=== PATIENT | female | born 1950 | race American Indian/Alaskan Native ===

== ENCOUNTER 2021-03-08 09:25 | Emergency (ER) | payer MEDICARE ==
[2021-03-08] MEDS ORDERED: HYDROcodone/ACETAMINOPHEN 10-325MG TAB PO ONE (10:23)
--- NOTE | 2021-03-08 10:25 | Emergency Department Report ---
<FLOR MCCALL A - Last Filed: 03/08/21 12:38> ED Fall HPI - General Chief Complaint: Extremity Injury, Upper Stated Complaint: LT ARM PAIN , FALL Time Seen by Provider: 03/08/21 10:23 Source: patient Mode of arrival: Wheelchair - History of Present Illness Initial Comments: 70 yo comes to ER via EMS sp GLF while at work today. She is co LUE pain- shoulder, elbow, and hand. Radial and ulnar pulses intact. Sensation intact. Able to move hand and wrist. Guarding her upper arm. Denies prodrome of chest pain, dizziness or other medical symptom. She states she tripped. Fall witnessed. No LOC. Nothing is currently hurting - just the left arm. No spine tenderness/Pt is neurologically intact. -: Sudden Fall From: standing When Fall Occurred: 1 hour [employer] Fall Witnessed: yes, by bystander Loss of Consciousness: none Prolonged Down Time?: no Symptoms Prior to Fall: none Location: other Location - Extremities: Left: Shoulder, Arm, Elbow, Forearm Severity: moderate Quality: dull Context: tripped/slipped Associated Symptoms: denies - Related Data Allergies Allergy/AdvReac Type Severity Reaction Status Date / Time clindamycin [From Cleocin] Allergy Rash Verified 03/08/21 10:00 sulfamethoxazole Allergy Rash Verified 03/08/21 10:00 [From Bactrim] trimethoprim [From Bactrim] Allergy Rash Verified 03/08/21 10:00 ED Review of Systems Comment: All other systems reviewed and negative ED Past Medical Hx - Past Medical History Previous Medical History?: Yes Hx Hypertension: Yes Hx Arthritis: Yes - Family History Family history: no significant - Social History Smoking Status: Never Smoker Substance Use Type: None ED Physical Exam - General Limitations: No Limitations General appearance: alert, in no apparent distress - Head Head exam: Present: atraumatic, normocephalic - Eye Eye exam: Present: normal appearance - ENT ENT exam: Present: mucous membranes moist - Neck Neck exam: Present: normal inspection - Respiratory Respiratory exam: Present: normal lung sounds bilaterally. Absent: respiratory distress - Cardiovascular Cardiovascular Exam: Present: regular rate, normal rhythm. Absent: systolic murmur, diastolic murmur, rubs, gallop - GI/Abdominal GI/Abdominal exam: Present: soft, normal bowel sounds - Extremities Exam Extremities exam: Present: normal inspection - Expanded Upper Extremity Exam Left Shoulder Exam: Present: tenderness Upper Arm exam: Present: normal inspection Elbow exam: Present: normal inspection Forearm Wrist exam: Present: normal inspection - Back Exam Back exam: Present: normal inspection - Neurological Exam Neurological exam: Present: alert, oriented X3 - Psychiatric Psychiatric exam: Present: normal affect, normal mood - Skin Skin exam: Present: warm, dry, intact, normal color. Absent: rash ED Course - Reevaluation(s) Reevaluation #1: 03/08/21 12:[address] Rosario Needs reduction- greater tuberocity should reapproximate Then sling and have her follow up with Dr Rosario Staffed with Dr Stephen moctezuma for procedure María RN aware ED Medical Decision Making - Radiology Data Radiology results: report reviewed, image reviewed shoulder dislocation - Medical Decision Making Vital Signs 03/08/21 10:01 Temperature 97.5 F L Pulse Rate 72 Respiratory 16 Rate Blood Pressure 159/76 [Left] O2 Sat by Pulse 98 Oximetry triage- sling ordered; xray ordered medicated with norco neurovascular intact xray noted- will need reduction 1150 Dr Rosario ortho paged for recs- given dislocation and fracture pt had been medicated with morphine - she has INT placed by EMS remains neurovasc intact with good ulnar and radial pulses - Differential Diagnosis ro fx/dislocation/contusion ED Disposition Clinical Impression: Fall from ground level, Shoulder fracture, left, Dislocation, shoulder, anterior Disposition: 01 HOME / SELF CARE / HOMELESS Is pt being admited?: No Does the pt Need Aspirin: No Condition: Stable Instructions: Shoulder Dislocation, Pddw-le-Eljo, Moderate Conscious Sedation, Adult Referrals: PRIMARY CARE, [Primary Care Provider] - 3-5 Days GUMARO ROSARIO MD [Staff Physician] - 3-5 Days Time of Disposition: 11:47 <JOANNE WEBER - Last Filed: 03/08/21 15:42> ED Review of Systems ROS: Stated complaint: LT ARM PAIN , FALL Other details as noted in HPI ED Course Vital Signs 03/08/21 03/08/21 03/08/21 10:01 13:55 13:59 Temperature 97.5 F L Temperature [ 98.0 F Pre-Procedure] Pulse Rate 72 Pulse Rate [ 73 Intra-Procedure ] Pulse Rate [ 70 Post-Procedure] Pulse Rate [Pre 69 -Procedure] Respiratory 16 Rate Respiratory 24 Rate [Intra- Procedure] Respiratory 28 H Rate [Post- Procedure] Respiratory 28 H Rate [Pre- Procedure] Blood Pressure 141/87 [Intra- Procedure] Blood Pressure 159/76 [Left] Blood Pressure 145/94 [Post-Procedure ] Blood Pressure 177/73 [Pre-Procedure] O2 Sat by Pulse 98 99 Oximetry O2 Sat by Pulse 99 Oximetry [ Intra-Procedure ] O2 Sat by Pulse 100 Oximetry [Post -Procedure] O2 Sat by Pulse 100 Oximetry [Pre- Procedure] 03/08/21 03/08/21 15:01 15:14 Temperature Temperature [ Pre-Procedure] Pulse Rate Pulse Rate [ Intra-Procedure ] Pulse Rate [ Post-Procedure] Pulse Rate [Pre -Procedure] Respiratory 19 18 Rate Respiratory Rate [Intra- Procedure] Respiratory Rate [Post- Procedure] Respiratory Rate [Pre- Procedure] Blood Pressure [Intra- Procedure] Blood Pressure 145/51 [Left] Blood Pressure [Post-Procedure ] Blood Pressure [Pre-Procedure] O2 Sat by Pulse 99 Oximetry O2 Sat by Pulse Oximetry [ Intra-Procedure ] O2 Sat by Pulse Oximetry [Post -Procedure] O2 Sat by Pulse Oximetry [Pre- Procedure] - Reevaluation(s) Reevaluation #2: 03/08/21 13:20 Attempted shoulder reduction, however, was unable to achieve realignment. Will administer moderate sedation and attempt again. 03/08/21 14:21 Pt was given etomidate 7 mg. Reduction was attempted. Xray shows shoulder dislocated. Pt awoke fully from 1st dose of etomidate, so she was given 2nd dose of etomidate 5 mg. Reduction was attempted again but was unsuccessful. Dr Abraham blnadon. Currently in surgery. 03/08/21 15:40 Spoke w/ Dr Rosario. Just finished up surgery. States will come to ED to attempt reduction. - Moderate Sedation Indications: fracture/dislocation redu ASA Class: II Mallampati Airway Score: 4 Time of Last PO Intake: 07:30 Preparation: case monitor applied, pulse oximeter, capnometry used, supplemental O2 applied, suction/airway equipment at bedside, IV secured IV Etomidate Dose (mgs): 12 Complications: none Patient Tolerated Procedure: well - Orthopedic Joint Reduction Joint #1 Consent Obtained: written consent Time Out Performed: Yes Side: left Joint Reduction Location: shoulder Analgesia: moderate sedation Shoulder Technique Used (if applicable): traction/counter-traction, external rotation, Fox, other (Kaylee) Post Reduction X-Ray Results: not reduced Patient Tolerated Procedure: well Critical care attestation.: If time is entered above; I have spent that time in minutes in the direct care of this critically ill patient, excluding procedure time.
--- NOTE | 2021-03-08 11:44 | XRay Report ---
LEFT SHOULDER 3 VIEWS INDICATION: pain sp fall. COMPARISON: None. IMPRESSION: An anterior inferior dislocation is identified at the glenohumeral joint. Displaced frac ture is also identified involving the lateral humeral head. The glenoid is grossly intact. The clavic le is intact. No significant DJD. LEFT ELBOW 3 VIEWS INDICATION: pain sp fall. COMPARISON: None. IMPRESSION: No acute osseous or soft tissue abnormality. No significant DJD. LEFT WRIST 3 VIEWS INDICATION: pain sp fall. COMPARISON: None. IMPRESSION: No acute osseous or soft tissue abnormality. 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 Signer Name: Raciel Salgado Jr, MD Signed: 03/08/2021 11:39 AM Workstation Name: [id number]
[2021-03-08] MEDS ORDERED: ONDANSETRON 4 MG/2 ML INJ IV ONE (12:00)
[2021-03-08] MEDS ORDERED: MORPHINE 4 MG/1 ML INJ IV ONE (12:00)
[2021-03-08] MEDS ORDERED: SODIUM CHLORIDE 0.9% 1000 ML 1,000 ML IV ONE (12:37)
[2021-03-08] MEDS ORDERED: ETOMIDATE 20 MG/10 ML INJ IV ONE ×2 (13:25→14:06)
--- NOTE | 2021-03-08 13:46 | XRay Report ---
SINGLE VIEW LEFT SHOULDER INDICATION: post- reduction. COMPARISON: Earlier today. FINDINGS: There is persistent anterior inferior dislocation of the humeral head with respect to glenoid with di splacement of tuberosity fracture fragment. IMPRESSION: 1. Persistent anterior dislocation after reduction attempt. Signer Name: Vishal Elliott MD Signed: 03/08/2021 1:42 PM Workstation Name: [id number]
--- NOTE | 2021-03-08 14:36 | XRay Report ---
LEFT SHOULDER ONE VIEW INDICATION / CLINICAL INFORMATION: post reduction COMPARISON: 03/08/2021, 1307 hours FINDINGS: BONES / JOINT(S): Anterior-inferior dislocation of the humeral head with displaced fracture of the gr eater tuberosity is again noted. The alignment appears unchanged from the radiograph obtained earlier . The dislocation persists. SOFT TISSUES: No significant abnormality. ADDITIONAL FINDINGS: None. Impression: Persistent anterior dislocation after attempted reduction. No significant change. Signer Name: Wilder Victor MD Signed: 03/08/2021 2:31 PM Workstation Name: [id number]
[2021-03-08] MEDS ORDERED: MIDAZOLAM 5 MG/5 ML INJ MDV IV ONE (16:29)
--- NOTE | 2021-03-08 16:38 | Consultation ---
History of Present Illness - HPI Consult date: 03/08/21 Consult reason: fracture History of present illness: 70 y/o female with c/o left shoulder pain after a ground level fall at work earlier today, states unable to move left arm due to pain, no previous hx of similar problems in past...ER physician tried to reduce fracture-dislocation left shoulder but unsuccessful therefore ER consult requested...no other c/o's noted... Medications and Allergies Allergies Allergy/AdvReac Type Severity Reaction Status Date / Time clindamycin [From Cleocin] Allergy Rash Verified 03/08/21 10:00 sulfamethoxazole Allergy Rash Verified 03/08/21 10:00 [From Bactrim] trimethoprim [From Bactrim] Allergy Rash Verified 03/08/21 10:00 Assessment and Plan left shoulder fx/dislocation will attempt closed reduction 1st, if not successful then require closed reduction anesthesia in the OR
--- NOTE | 2021-03-08 17:33 | Emergency Department Report ---
Blank Doc - Documentation Documentation: Shoulder was reduced by orthopedic surgery. Patient was subsequently discharged.
[2021-03-08 17:52] VITALS: BP 144/59
--- NOTE | 2021-03-08 18:12 | XRay Report ---
LEFT SHOULDER 1 VIEW 4:55 PM INDICATION / CLINICAL INFORMATION: Post reduction. COMPARISON: Earlier today at 2:01 PM. FINDINGS: The previously described anterior dislocation has been reduced. There is a mildly comminuted fracture of the greater tuberosity of the humerus with mild displacement of the fracture fragments. Signer Name: Hernan Powers MD Signed: 03/08/2021 6:08 PM Workstation Name: [id number]
== END 2021-03-08 18:32 | disposition home or self-care (01) ==
LOC: ED 09:25
DX: S43.085A Other dislocation of left shoulder joint, initial encounter (principal); S42.92XA Fracture of left shoulder girdle, part unspecified, initial encounter for closed fracture; Z88.2 Allergy status to sulfonamides; Z88.1 Allergy status to other antibiotic agents; I10 Essential (primary) hypertension; W19.XXXA Unspecified fall, initial encounter; Y93.89 Activity, other specified; Y92.89 Other specified places as the place of occurrence of the external cause; Y99.8 Other external cause status
CPT/HCPCS: 23650; 73020; 73030; 73080; 73110; 96374; 96375; 99284; J2250; J2270; J2405; 96376